=== PATIENT | male | born 1995 ===

== ENCOUNTER 2024-09-28 12:03 | Inpatient (IN) | payer BC ==
[2024-09-28 13:13] LABS: BASOPHILS ABSOLUTE AUTO 0.05 K/uL (0.00-0.20); BASOPHILS PERCENT AUTO 0.6 % (0.0-1.0); EOSINOPHILS ABSOLUTE AUTO 0.09 K/uL (0.00-0.45); HEMATOCRIT 45.3 % (42.0-52.0); HEMOGLOBIN 16.2 g/dL (14.0-18.0); IMMATURE GRAN ABSOLUTE AUTO 0.04 K/uL (0.00-0.05); IMMATURE GRAN PERCENT AUTO 0.4 % (0.0-0.4); LYMPHOCYTES PERCENT AUTO 16.6 % (24.0-44.0); MEAN CORPUSCULAR HEMOGLOBIN 31.9 pg (28.0-32.0); MEAN CORPUSCULAR HGB CONC 35.8 g/dL (32.0-36.0); MEAN CORPUSCULAR VOLUME 89.2 fL (83.0-99.0); MONOCYTES ABSOLUTE AUTO 0.62 K/uL (0.00-0.80); MONOCYTES PERCENT AUTO 6.8 % (0.0-8.0); NEUTROPHILS ABSOLUTE AUTO 6.76 K/uL (1.80-7.70); NEUTROPHILS PERCENT AUTO 74.6 % (41.0-71.0); PLATELET COUNT,PLT 301 K/uL (150-400); RED BLOOD CELL COUNT 5.08 M/uL (4.52-5.90); WHITE BLOOD CELL COUNT,WBC 9.06 K/uL (3.9-11.3)
[2024-09-28] MEDS: Sodium Chloride 0.9% 1,000 ML IV ONE ×2 (13:29→13:51)
[2024-09-28] MEDS: chlordiazePOXIDE 25 MG Cap PO ONE ×2 (13:41→17:31)
[2024-09-28 13:44] LABS: A/G RATIO 1.4 (0.9-1.6); ALBUMIN 4.9 g/dL (3.4-5.0); CALCIUM 9.4 mg/dL (8.5-10.1); CARBON DIOXIDE,CO2 24.5 mmol/L (21.0-32.0); CREATININE 0.9 mg/dL (0.8-1.3); EST CRCL DRUG DOSING (CG) 136.87 mL/min; POTASSIUM,K 4.1 mmol/L (3.5-5.1); PROTEIN TOTAL,TP 8.3 g/dL (6.4-8.2)
[2024-09-28] MEDS: LORazepam 2 MG/ML SDV IVPUSH ONE ×4 (13:44→17:32)
[2024-09-28 14:43] LABS: TSH ULTRASENSITIVE 0.89 uIU/mL (0.36-3.74)
[2024-09-28 14:53] LABS: APPEARANCE,URINE CLEAR; BILIRUBIN,URINE NEGATIVE (NEGATIVE); COLOR,URINE YELLOW; GLUCOSE,URINE NEGATIVE (NEGATIVE); KETONES,URINE 40 mg/dL (NEGATIVE); LEUKOCYTE ESTERASE,URINE NEGATIVE (NEGATIVE); NITRITE,URINE NEGATIVE (NEGATIVE); OCCULT BLOOD,URINE NEGATIVE (NEGATIVE); PROTEIN,URINE NEGATIVE (NEGATIVE); UROBILINOGEN,URINE 0.2 EU/dL (<2.0)
[2024-09-28 15:04] LABS: AMPHETAMINES SCREEN, URINE NEGATIVE (CUTOFF=500); BARBITURATE SCREEN,URINE NEGATIVE (CUTOFF=200); BENZODIAZEPINES SCREEN,URINE NEGATIVE (CUTOFF=150); BUPRENORPHINE SCREEN,URINE NEGATIVE (CUTOFF=10); METHADONE SCREEN, URINE NEGATIVE (CUTOFF=200); METHAMPHETAMINES SCREEN, URINE NEGATIVE (CUTOFF=500); OXYCODONE SCREEN,URINE NEGATIVE (CUT0FF=100); PCP SCREEN,URINE NEGATIVE (CUTOFF=25); THC SCREEN,URINE 20 NG/ML NEGATIVE (CUTOFF=50)
[2024-09-28] MEDS: hydrALAZINE 20 MG/ML SDV IVPUSH ONE (16:16)
[2024-09-28] MEDS ORDERED: Lactated Ringers 1,000 ML IV SCH (17:30)
== END 2024-09-28 19:31 | disposition left against medical advice (07) | DRG 770 ==
LOC: MW.ED 12:03 → MW.MS 17:35
PROVIDERS: ADMIT Internal Medicine; ATTEND Internal Medicine
DX: F10.931 Alcohol use, unspecified with withdrawal delirium (principal); I10 Essential (primary) hypertension
CPT/HCPCS: 36415; 71045; 71045-26; 80053; 80305; 80307; 81003; 83735; 84443; 84484; 85025; 85379; 93005; 96361; 96374; 96375; 96376; 99285-25; A9270-GY; J0360; J2060; J7030